=== PATIENT | female | born 1975 | race African-American/Black ===

== ENCOUNTER 2018-09-04 12:19 | Emergency (ER) | payer SELFPAY ==
[2018-09-04] MEDS ORDERED: Ondansetron ODT 4 MG TAB ONE (13:22)
[2018-09-04] MEDS ORDERED: Promethazine HCl 25 MG/ML VIAL ONE (14:36)
[2018-09-04 14:40] LABS: BHCG - Serum Negative (NEGATIVE); Eosinophils 2 % (0-10); Hemoglobin 14.4 g/dL (12.0-16.0); Lymphocytes 13 % (21-51); MDiff Complete? YES; Mean Corpuscular HGB CONC 33.8 g/dL (32.0-36.0); Mean Corpuscular Hemoglobin 28.3 pg (27.0-31.0); Mean Corpuscular Volume 83.9 fL (78.0-98.0); Mean Platelet Volume 7.5 fL (7.4-10.4); Monocytes 7 % (0-10); Neutrophil 74 % (42-75); Platelet Count 278 thou/uL (130-400); Platelet Morphology Comment Appears Adequate; Pregs Control Background? CLEAR/WHITE (CLR/WHITE); Pregs Control Bar Appear? YES (CONTROL BAR); RBC Distribution Width 11.9 % (11.5-14.5); Reactive Lymphocytes 3 % (0-10); White Blood Cell (WBC) Count 14.6 thou/uL (4.8-10.8)
[2018-09-04 14:50] LABS: ALT (SGPT) 14 U/L (8-55); AST (SGOT) 17 U/L (5-34); Albumin 4.7 g/dL (3.5-5.0); Alkaline Phosphatase 82 U/L (40-150); Anion Gap 18 mmol/L (10-20); BUN (Urea Nitrogen) 28 mg/dL (7.0-18.7); Bilirubin, Total 0.4 mg/dL (0.2-1.2); Calc. Creatinine Clearance 0 mL/min (70-130); Calcium 10.5 mg/dL (7.8-10.44); Carbon Dioxide 22 mmol/L (22-29); Chloride 102 mmol/L (98-107); Estimated GFR-MDRD 42; Globulin 3.5 g/dL (2.4-3.5); Glucose 99 mg/dL (70-105); Lipase 32 U/L (8-78); Potassium 3.1 mmol/L (3.5-5.1); Protein, Total 8.2 g/dL (6.0-8.3); Sodium 139 mmol/L (136-145)
[2018-09-04] MEDS ORDERED: Potassium Chloride 20 MEQ TAB ONE (15:10)
== END 2018-09-04 17:15 | disposition home or self-care (01) ==
LOC: SCSER 12:19
DX: K52.9 Noninfective gastroenteritis and colitis, unspecified (principal)
CPT/HCPCS: 80053; 83605; 83690; 84703; 85025; 96365; J2550; Q0162

== ENCOUNTER 2018-09-05 11:10 | Emergency (ER) | payer SELFPAY ==
[2018-09-05] MEDS ORDERED: Lidocaine Viscous Sol 2% 15 ml UD Cup ONE (11:32)
== END 2018-09-05 11:40 | disposition home or self-care (01) ==
LOC: SCSER 11:10
DX: K12.1 Other forms of stomatitis (principal)
CPT/HCPCS: 99283

== ENCOUNTER 2018-09-05 13:11 | Emergency (ER) | payer SELFPAY ==
[2018-09-05] MEDS ORDERED: Ibuprofen 800 MG TAB ONE (16:06)
[2018-09-05] MEDS ORDERED: Benzocaine (Dental) 20% 10 gm Tube TOP SCH (16:30)
== END 2018-09-05 17:05 | disposition home or self-care (01) ==
LOC: ERS 13:11
DX: K12.0 Recurrent oral aphthae (principal); F17.210 Nicotine dependence, cigarettes, uncomplicated; Z79.899 Other long term (current) drug therapy
CPT/HCPCS: 99282

== ENCOUNTER 2018-09-07 06:23 | Emergency (ER) | payer SELFPAY | END 2018-09-07 07:17 | disposition home or self-care (01) | LOC: ERS 06:23 | DX: K12.0 Recurrent oral aphthae (principal); F17.210 Nicotine dependence, cigarettes, uncomplicated | CPT/HCPCS: 99281 ==

== ENCOUNTER 2019-02-27 14:26 | Emergency (ER) | payer SELFPAY | END 2019-02-27 15:01 | disposition home or self-care (01) | LOC: ERS 14:26 | DX: F41.9 Anxiety disorder, unspecified (principal); R21 Rash and other nonspecific skin eruption; K08.89 Other specified disorders of teeth and supporting structures; F17.210 Nicotine dependence, cigarettes, uncomplicated | CPT/HCPCS: 99283 ==

== ENCOUNTER 2021-09-06 20:52 | Inpatient (IN) | payer SELFPAY ==
[2021-09-06 21:36] LABS: #Basophils 0.1 thou/uL (0.0-0.2); #Eosinphils 0.1 thou/uL (0.0-0.7); #Lymphocytes 3.1 thou/uL (1.20-3.40); #Monocytes 0.9 thou/uL (0.11-0.59); #Neutrophils 9.1 thou/uL (1.40-6.50); %Basophils 0.5 % (0.0-1.0); %Eosinophils 0.8 % (0.0-10.0); %Lymphocytes 23.4 % (21.0-51.0); %Neutrophils 68.3 % (42.0-75.0); Hemoglobin 13.1 g/dL (12.0-16.0); Mean Corpuscular HGB CONC 33.2 g/dL (32.0-36.0); Mean Corpuscular Hemoglobin 28.5 pg (27.0-31.0); Mean Corpuscular Volume 85.9 fL (78.0-98.0); Mean Platelet Volume 8.1 fL (7.4-10.4); Platelet Count 273 thou/uL (130-400); RBC Distribution Width 12.5 % (11.5-14.5); Red Blood Cell (RBC) Count 4.58 mill/uL (4.20-5.40); White Blood Cell (WBC) Count 13.3 thou/uL (4.8-10.8)
[2021-09-06 21:50] LABS: ALT (SGPT) 16 U/L (8-55); AST (SGOT) 29 U/L (5-34); Albumin 4.2 g/dL (3.5-5.0); Alkaline Phosphatase 76 U/L (40-110); Anion Gap 24 mmol/L (10-20); BUN (Urea Nitrogen) 23 mg/dL (7.0-18.7); Bilirubin, Total 0.5 mg/dL (0.2-1.2); Calc. Creatinine Clearance 0 mL/min (70-130); Calcium 9.4 mg/dL (7.8-10.44); Carbon Dioxide 27 mmol/L (22-29); Chloride 91 mmol/L (98-107); Estimated GFR 20; Globulin 3.9 g/dL (2.4-3.5); Glucose 148 mg/dL (70-105); Lipase 35 U/L (8-78); Potassium 3.5 mmol/L (3.5-5.1); Protein, Total 8.1 g/dL (6.0-8.3); Sodium 138 mmol/L (136-145)
[2021-09-06 22:18] LABS: INR-International Normal Ratio 1.1; PTT 28.3 sec (22.9-36.1); Prothrombin Time 14.1 sec (12.0-14.7)
[2021-09-06 22:25] LABS: Acetaminophen Less than 10.0 mcg/mL (10.0-30.0); Alcohol Less than 10 mg/dL (Less than 10); CK (CPK) 421 U/L (29-168); Salicylate Less than 8.0 mg/dL (15.0-30.0)
[2021-09-06 22:39] LABS: BHCG - Serum Negative (NEGATIVE); Pregs Control Background? CLEAR/WHITE (CLR/WHITE); Pregs Control Bar Appear? YES (CONTROL BAR)
[2021-09-06] MEDS ORDERED: Sodium Chloride 0.9% 100 ML ONE (22:49)
[2021-09-06] MEDS ORDERED: Cefepime 2 GM VIAL ONE (22:49)
[2021-09-06] MEDS ORDERED: VANCOMYCIN 2 GRAM/500 ML BAG 2 GM in Premix Bag 1 BAG IVPB SCH (23:00)
[2021-09-06 23:08] LABS: Amphetamine Detected (NotDetected); Barbiturates Screen Not Detected (NotDetected); Benzodiazepine Screen Not Detected (NotDetected); Cocaine Metabolite Screen Not Detected (NotDetected); Methadone Not Detected (NotDetected); Methamphetamine Detected (NotDetected); Opiate Screen Not Detected (NotDetected); Oxycodone Screen Not Detected (NotDetected); Phencyclidine (PCP) Not Detected (NotDetected); THC/Cannabinoid Screen Not Detected (NotDetected); Tricyclic Screen Detected (NotDetected)
[2021-09-06 23:41] LABS: SARS-CoV-2 NAA Rapid Test Not Detected (NotDetected)
[2021-09-07] MEDS ORDERED: Ketamine 50 MG/ML (10ML VIAL) ONE (01:01)
[2021-09-07] MEDS ORDERED: Norepinephrine 8 MG/0.9% NS 250 ML ONE (01:02)
[2021-09-07 03:30] VITALS: BMI 38.4
[2021-09-07] MEDS: Sodium Chloride 0.9% 1,000 ML IV SCH ×4 (03:30→20:51)
[2021-09-07] MEDS ORDERED: Ondansetron PF 4 MG/2 ML Vial IVP PRN (04:39)
[2021-09-07] MEDS ORDERED: Norepinephrine 8 MG/0.9% NS 250 ML IVPB SCH (04:45)
[2021-09-07] MEDS ORDERED: Acetaminophen 325 MG TAB ONE (06:08)
[2021-09-07] MEDS: Acetaminophen 325 MG TAB PO PRN ×2 (06:09→11:20)
[2021-09-07 06:49] LABS: #Eosinphils 0.2 thou/uL (0.0-0.7); #Lymphocytes 3.3 thou/uL (1.20-3.40); #Monocytes 0.9 thou/uL (0.11-0.59); %Basophils 0.3 % (0.0-1.0); %Eosinophils 1.3 % (0.0-10.0); %Lymphocytes 24.6 % (21.0-51.0); Hemoglobin 11.2 g/dL (12.0-16.0); Mean Corpuscular HGB CONC 32.9 g/dL (32.0-36.0); Mean Corpuscular Hemoglobin 28.7 pg (27.0-31.0); Mean Corpuscular Volume 87.1 fL (78.0-98.0); Mean Platelet Volume 7.9 fL (7.4-10.4); Platelet Count 269 thou/uL (130-400); RBC Distribution Width 12.4 % (11.5-14.5); White Blood Cell (WBC) Count 13.5 thou/uL (4.8-10.8)
[2021-09-07 07:05] LABS: Anion Gap 15 mmol/L (10-20); BUN (Urea Nitrogen) 20 mg/dL (7.0-18.7); Calc. Creatinine Clearance 72 mL/min (70-130); Calcium 8.3 mg/dL (7.8-10.44); Carbon Dioxide 27 mmol/L (22-29); Chloride 102 mmol/L (98-107); Estimated GFR 42; Glucose 124 mg/dL (70-105); Sodium 141 mmol/L (136-145)
[2021-09-07 07:13] LABS: Potassium 2.8 mmol/L (3.5-5.1)
[2021-09-07 07:20] LABS: Lymphocytes 24 % (21-51); MDiff Complete? YES; Monocytes 3 % (0-10); Neutrophil 70 % (42-75); Platelet Morphology Comment Appears Adequate; Reactive Lymphocytes 2 % (0-10)
[2021-09-07] MEDS ORDERED: Potassium Chloride 20 MEQ TAB PO SCH ×2 (08:15→15:45)
[2021-09-07] MEDS: Famotidine 20 MG TAB PO SCH (08:54)
[2021-09-07] MEDS: Heparin 5,000 UNITS/ML VIAL SC SCH ×2 (08:55→20:48)
[2021-09-07] MEDS ORDERED: Enoxaparin Sodium 30 MG/0.3 ML SYRINGE SC SCH (09:00)
[2021-09-07] MEDS ORDERED: Lorazepam 2 MG/ML VIAL SLOW IVP PRN (10:52)
[2021-09-07] MEDS ORDERED: Cefepime 1 GM in Sodium Chloride 0.9% 100 ML IVPB SCH (11:00)
[2021-09-07 12:06] LABS: Bilirubin Negative (Negative); Blood, Urine Negative (Negative); Clarity Clear (Clear); Glucose, Urine (Dipstick) Normal (Negative); Ketone, Urine Negative (Negative); Leukocyte Negative Leu/uL (Negative); Nitrite Negative (Negative); Protein, Urine (Dipstick) 10 mg/dL (Neg-Trace); Specific Gravity, Urine 1.018 (1.002-1.036); Urobilinogen Normal mg/dL (Less than 2)
[2021-09-07] MEDS ORDERED: Electrolyte Replacement Protocol FS PRN (15:45)
[2021-09-07] MEDS ORDERED: Electrolyte Replacement Protocol 1 EACH FS SCH (15:45)
[2021-09-07 16:18] LABS: Anion Gap 15 mmol/L (10-20); BUN (Urea Nitrogen) 14 mg/dL (7.0-18.7); CK (CPK) 480 U/L (29-168); Calc. Creatinine Clearance 95 mL/min (70-130); Calcium 8.1 mg/dL (7.8-10.44); Carbon Dioxide 28 mmol/L (22-29); Chloride 103 mmol/L (98-107); Estimated GFR 59; Glucose 116 mg/dL (70-105); Magnesium 1.7 mg/dL (1.6-2.6); Sodium 143 mmol/L (136-145)
[2021-09-07 16:31] LABS: Potassium 2.8 mmol/L (3.5-5.1)
[2021-09-07] MEDS: Magnesium 2 GM/50 ML(in water) 2 GM in Premix Bag 1 BAG IVPB SCH (17:39)
[2021-09-07] MEDS: Potassium Chloride 20 MEQ TAB PO SCH (20:43)
[2021-09-07] MEDS ORDERED: traMADol HCl 50 MG TAB PO SCH (21:04)
[2021-09-07] MEDS ORDERED: Vancomycin HCl 1 GM in Sodium Chloride 0.9% 250 ML 0 ML IVPB SCH (23:00)
[2021-09-08 01:43] LABS: Potassium 3.2 mmol/L (3.5-5.1)
[2021-09-08] MEDS: Sodium Chloride 0.9% 1,000 ML IV SCH ×5 (01:49→22:41)
[2021-09-08 04:32] LABS: #Basophils 0.1 thou/uL (0.0-0.2); #Eosinphils 0.3 thou/uL (0.0-0.7); #Lymphocytes 3.5 thou/uL (1.20-3.40); #Monocytes 0.7 thou/uL (0.11-0.59); #Neutrophils 5.6 thou/uL (1.40-6.50); %Basophils 0.5 % (0.0-1.0); %Eosinophils 2.8 % (0.0-10.0); %Lymphocytes 34.7 % (21.0-51.0); %Monocytes 6.7 % (0.0-10.0); %Neutrophils 55.2 % (42.0-75.0); Hemoglobin 10.7 g/dL (12.0-16.0); Mean Corpuscular HGB CONC 33.1 g/dL (32.0-36.0); Mean Corpuscular Hemoglobin 28.8 pg (27.0-31.0); Mean Corpuscular Volume 86.9 fL (78.0-98.0); Mean Platelet Volume 7.8 fL (7.4-10.4); Platelet Count 260 thou/uL (130-400); RBC Distribution Width 12.4 % (11.5-14.5); White Blood Cell (WBC) Count 10.1 thou/uL (4.8-10.8)
[2021-09-08 04:52] LABS: Anion Gap 13 mmol/L (10-20); BUN (Urea Nitrogen) 10 mg/dL (7.0-18.7); CK (CPK) 495 U/L (29-168); Calc. Creatinine Clearance 138 mL/min (70-130); Calcium 8.4 mg/dL (7.8-10.44); Carbon Dioxide 29 mmol/L (22-29); Chloride 104 mmol/L (98-107); Estimated GFR 92; Glucose 95 mg/dL (70-105); Potassium 3.3 mmol/L (3.5-5.1); Sodium 143 mmol/L (136-145)
[2021-09-08] MEDS: Acetaminophen 325 MG TAB PO PRN (05:16)
[2021-09-08] MEDS ORDERED: Potassium Chloride 20 MEQ TAB PO SCH ×2 (07:30→08:00)
[2021-09-08] MEDS: Heparin 5,000 UNITS/ML VIAL SC SCH ×2 (09:47→20:05)
[2021-09-08] MEDS: Famotidine 20 MG TAB PO SCH (09:47)
[2021-09-08 14:23] LABS: Bacteria/HPF None Seen HPF (None Seen); Bilirubin Negative (Negative); Blood, Urine 1+ (Negative); Clarity Clear (Clear); Glucose, Urine (Dipstick) Normal (Negative); Ketone, Urine Negative (Negative); Leukocyte Negative Leu/uL (Negative); Nitrite Negative (Negative); Protein, Urine (Dipstick) Negative (Neg-Trace); Specific Gravity, Urine 1.008 (1.002-1.036); Squamous Epithelial None Seen HPF (0-3); Urine Culture Reflex No No; Urobilinogen Normal mg/dL (Less than 2); WBC/HPF 0-3 HPF (0-3)
[2021-09-08] MEDS: Magnesium 2 GM/50 ML(in water) 2 GM in Premix Bag 1 BAG IVPB SCH (16:48)
[2021-09-08] MEDS: Lorazepam (BATCHED) 2 MG/ML SYR SLOW IVP PRN ×2 (16:49→23:06)
[2021-09-08] MEDS: Potassium Chloride 20 MEQ TAB PO SCH (20:05)
[2021-09-09] MEDS: Sodium Chloride 0.9% 1,000 ML IV SCH ×3 (03:43→14:42)
[2021-09-09 04:37] LABS: #Basophils 0.1 thou/uL (0.0-0.2); #Eosinphils 0.3 thou/uL (0.0-0.7); #Lymphocytes 3.5 thou/uL (1.20-3.40); #Monocytes 0.6 thou/uL (0.11-0.59); #Neutrophils 4.4 thou/uL (1.40-6.50); %Basophils 0.7 % (0.0-1.0); %Eosinophils 3.3 % (0.0-10.0); %Lymphocytes 39.4 % (21.0-51.0); %Monocytes 7.1 % (0.0-10.0); %Neutrophils 49.5 % (42.0-75.0); Hemoglobin 10.9 g/dL (12.0-16.0); Mean Corpuscular HGB CONC 32.1 g/dL (32.0-36.0); Mean Corpuscular Hemoglobin 28.5 pg (27.0-31.0); Mean Corpuscular Volume 88.7 fL (78.0-98.0); Platelet Count 260 thou/uL (130-400); RBC Distribution Width 12.2 % (11.5-14.5); Red Blood Cell (RBC) Count 3.81 mill/uL (4.20-5.40); White Blood Cell (WBC) Count 8.9 thou/uL (4.8-10.8)
[2021-09-09 05:31] LABS: Anion Gap 16 mmol/L (10-20); BUN (Urea Nitrogen) 7 mg/dL (7.0-18.7); CK (CPK) 363 U/L (29-168); Calc. Creatinine Clearance 162 mL/min (70-130); Calcium 8.2 mg/dL (7.8-10.44); Carbon Dioxide 22 mmol/L (22-29); Chloride 106 mmol/L (98-107); Estimated GFR 110; Glucose 98 mg/dL (70-105); Potassium 3.4 mmol/L (3.5-5.1); Sodium 141 mmol/L (136-145)
[2021-09-09] MEDS ORDERED: Potassium Chloride 20 MEQ TAB PO SCH (08:00)
[2021-09-09] MEDS: Famotidine 20 MG TAB PO SCH (09:51)
[2021-09-09] MEDS: Heparin 5,000 UNITS/ML VIAL SC SCH (09:54)
[2021-09-09] MEDS ORDERED: Lorazepam 0.5 MG TAB PO SCH (14:45)
[2021-09-09 16:42] VITALS: BP 141/80; TEMP 98
== END 2021-09-09 16:20 | disposition home or self-care (01) | DRG 557 ==
LOC: ERS 20:52 → ERHOLD 09-07 00:51 → EEVIPCON 09-07 00:51 → CCU 09-07 08:27 → 2NO 09-07 19:48
PROVIDERS: ADMIT Internal Medicine; ATTEND Hospitalist
PROC: 02HV33Z Insertion of Infusion Device into Superior Vena Cava, Percutaneous Approach (ICD-10-PCS; principal; 2021-09-07)
PROC: 00JU3ZZ Inspection of Spinal Canal, Percutaneous Approach (ICD-10-PCS; 2021-09-07)
PROC: 3E033XZ Introduction of Vasopressor into Peripheral Vein, Percutaneous Approach (ICD-10-PCS; 2021-09-07)
DX: M62.82 Rhabdomyolysis (principal); G93.41 Metabolic encephalopathy; R57.1 Hypovolemic shock; N17.9 Acute kidney failure, unspecified; I10 Essential (primary) hypertension; Z20.822 Contact with and (suspected) exposure to COVID-19; F17.210 Nicotine dependence, cigarettes, uncomplicated; F15.10 Other stimulant abuse, uncomplicated; I95.2 Hypotension due to drugs; E87.6 Hypokalemia; T43.625A Adverse effect of amphetamines, initial encounter; Z79.899 Other long term (current) drug therapy
CPT/HCPCS: 36415; 36416; 36556; 51702; 70450; 71045; 80048; 80053; 80306; 80307; 81001; 81003; 82550; 83605; 83690; 83735; 84443; 84484; 84703; 85025; 85610; 85730; 87040; 87086; 87149; 93005; 93010; 94760; 96361; 96365; 96366; 96375; 99292; J0692; J1644; J2060; J2405; J3370; J3475; J3490; J7050

== ENCOUNTER 2022-10-18 11:23 | Outpatient (CLI) | payer BC | END 2022-10-18 11:24 | disposition home or self-care (01) | LOC: BICMAMMO 11:23 | PROVIDERS: ATTEND Internal Medicine | DX: Z12.31 Encounter for screening mammogram for malignant neoplasm of breast (principal) | CPT/HCPCS: 77063; 77067 ==

== ENCOUNTER 2022-10-27 14:22 | Emergency (ER) | payer BC ==
[2022-10-27 15:07] LABS: #Eosinphils 0.2 thou/uL (0.0-0.7); #Monocytes 0.5 thou/uL (0.11-0.59); #Neutrophils 3.4 thou/uL (1.40-6.50); %Basophils 0.5 % (0.0-1.0); %Eosinophils 2.5 % (0.0-10.0); %Lymphocytes 49.2 % (21.0-51.0); %Monocytes 6.2 % (0.0-10.0); %Neutrophils 41.4 % (42.0-75.0); Hematocrit 41.9 % (36.0-47.0); Mean Corpuscular HGB CONC 33.4 g/dL (32.0-36.0); Mean Corpuscular Hemoglobin 28.5 pg (27.0-31.0); Mean Corpuscular Volume 85.3 fl (78.0-98.0); Mean Platelet Volume 10.3 fL (7.4-10.4); Platelet Count 305 10x3/uL (130-400); RBC Distribution Width 13.2 % (11.5-14.5); Red Blood Cell (RBC) Count 4.91 mill/uL (4.20-5.40); White Blood Cell (WBC) Count 8.3 10x3/uL (4.8-10.8)
[2022-10-27 15:16] LABS: BHCG - Serum Negative (NEGATIVE); Pregs Control Background? CLEAR/WHITE (CLR/WHITE); Pregs Control Bar Appear? YES (CONTROL BAR)
[2022-10-27 15:33] LABS: ALT (SGPT) 28 U/L (8-55); AST (SGOT) 22 U/L (5-34); Albumin 4.6 g/dL (3.5-5.0); Alkaline Phosphatase 78 U/L (40-110); Anion Gap 15 mmol/L (10-20); BUN (Urea Nitrogen) 8 mg/dL (7.0-18.7); Bilirubin, Total 0.3 mg/dL (0.2-1.2); Calc. Creatinine Clearance 0 mL/min (70-130); Calcium 10.4 mg/dL (7.8-10.44); Carbon Dioxide 30 mmol/L (22-29); Chloride 96 mmol/L (98-107); Estimated GFR 90; Globulin 3.3 g/dL (2.4-3.5); Glucose 110 mg/dL (70-105); Magnesium 1.6 mg/dL (1.6-2.6); Potassium 2.9 mmol/L (3.5-5.1); Protein, Total 7.9 g/dL (6.0-8.3); Sodium 138 mmol/L (136-145)
[2022-10-27 15:37] LABS: Troponin I Less than 0.010 ng/mL (< 0.028)
[2022-10-27] MEDS ORDERED: Potassium Chloride 20 MEQ TAB ONE (15:44)
[2022-10-27] MEDS ORDERED: Magnesium 2 GM/50 ML BAG (IN WATER) ONE (15:48)
== END 2022-10-27 17:00 | disposition home or self-care (01) ==
LOC: ERS 14:22
DX: E87.6 Hypokalemia (principal); I10 Essential (primary) hypertension; F17.210 Nicotine dependence, cigarettes, uncomplicated
CPT/HCPCS: 80053; 83735; 84484; 84703; 85025; 93005; 96361; 96365; J3475

== ENCOUNTER 2023-11-18 20:00 | Inpatient (IN) | payer BC ==
[2023-11-18] MEDS ORDERED: Acetaminophen 650 MG Suppository PR PRN (22:56)
[2023-11-18 23:33] VITALS: BMI 33.1
[2023-11-18] MEDS: Lactated Ringer's 1,000 ML IV SCH (23:51)
[2023-11-18] MEDS: Acetaminophen 325 MG TAB PO SCH (23:53)
[2023-11-18] MEDS: Ondansetron PF 4 MG/2 ML Vial IVP PRN (23:53)
[2023-11-18] MEDS: Nicotine 14 MG PATCH TD PRN (23:53)
[2023-11-18] MEDS: Lactated Ringer's 500 ML IV SCH (23:55)
[2023-11-19 01:29] LABS: #Basophils 0.03 10x3/uL (0.0-0.2); %Basophils 0.4 % (0.0-1.0); %Eosinophils 3.3 % (0.0-10.0); %Lymphocytes 33.6 % (21.0-51.0); %Monocytes 11.8 % (0.0-10.0); %Neutrophils 50.6 % (42.0-75.0); Hemoglobin 11.6 g/dL (12.0-16.0); Mean Corpuscular HGB CONC 34.1 g/dL (32.0-36.0); Mean Corpuscular Hemoglobin 29.2 pg (27.0-31.0); Mean Corpuscular Volume 85.6 fL (78.0-98.0); Platelet Count 280 10x3/uL (130-400); RBC Distribution Width 12.9 % (11.5-14.5); Red Blood Cell (RBC) Count 3.97 mill/uL (4.20-5.40)
[2023-11-19 01:43] LABS: Lactic Acid 1.36 mmol/L (0.5-2.2)
[2023-11-19 01:53] LABS: Anion Gap 12 mmol/L (10-20); BUN (Urea Nitrogen) 13 mg/dL (7.0-18.7); Calc. Creatinine Clearance 52 mL/min (70-130); Calcium 8.2 mg/dL (7.8-10.44); Carbon Dioxide 29 mmol/L (22-29); Chloride 101 mmol/L (98-107); Estimated GFR 35; Glucose 98 mg/dL (70-105); Potassium 2.3 mmol/L (3.5-5.1); Sodium 140 mmol/L (136-145)
[2023-11-19] MEDS: Potassium Chloride 20 MEQ in Premix 1 BAG IVPB SCH ×2 (02:30→14:06)
[2023-11-19 04:56] LABS: Anion Gap 15 mmol/L (10-20); BUN (Urea Nitrogen) 12 mg/dL (7.0-18.7); Calc. Creatinine Clearance 58 mL/min (70-130); Calcium 8.5 mg/dL (7.8-10.44); Carbon Dioxide 26 mmol/L (22-29); Chloride 102 mmol/L (98-107); Estimated GFR 39; Glucose 85 mg/dL (70-105); Potassium 2.7 mmol/L (3.5-5.1); Sodium 140 mmol/L (136-145)
[2023-11-19] MEDS: Potassium Chloride 20 MEQ TAB PO SCH ×2 (06:07→14:05)
[2023-11-19] MEDS: Famotidine 20 MG TAB PO SCH (08:20)
[2023-11-19] MEDS ORDERED: Famotidine/PF 20 mg/2ml Vial SLOW IVP SCH (09:00)
[2023-11-19 12:09] LABS: Potassium 2.7 mmol/L (3.5-5.1)
[2023-11-19] MEDS ORDERED: Potassium Chloride 40 MEQ in Premix 1 BAG IVPB SCH (13:30)
[2023-11-19] MEDS: Lactated Ringer's 1,000 ML IV SCH (22:34)
[2023-11-20 05:43] LABS: Anion Gap 10 mmol/L (10-20); BUN (Urea Nitrogen) 6 mg/dL (7.0-18.7); Calc. Creatinine Clearance 114 mL/min (70-130); Calcium 8.5 mg/dL (7.8-10.44); Carbon Dioxide 30 mmol/L (22-29); Chloride 102 mmol/L (98-107); Estimated GFR 86; Glucose 87 mg/dL (70-105); Magnesium 1.6 mg/dL (1.6-2.6); Potassium 2.7 mmol/L (3.5-5.1); Sodium 139 mmol/L (136-145)
[2023-11-20] MEDS ORDERED: Potassium Chloride 40 MEQ in Premix 1 BAG IVPB SCH (08:00)
[2023-11-20] MEDS ORDERED: Famotidine 20 MG TAB PO SCH (10:00)
[2023-11-20] MEDS: Magnesium Oxide 400 MG TAB PO SCH (10:54)
[2023-11-20] MEDS: Potassium Chloride 20 MEQ TAB PO SCH (10:54)
[2023-11-20] MEDS: Famotidine 20 MG TAB PO SCH (10:55)
[2023-11-20] MEDS: Magnesium 2 GM/50 ML(in water) 2 GM in Premix 1 BAG IVPB SCH (11:07)
[2023-11-20] MEDS: Potassium Bicarbonate/Cit Ac 20 MEQ TAB PO SCH (12:49)
[2023-11-20] MEDS: PHOS-NAK 1 PKT PACK PO SCH (12:49)
[2023-11-20] MEDS: Potassium Chloride 20 MEQ in Premix 1 BAG IVPB SCH (12:52)
[2023-11-20] MEDS: Lactated Ringer's 1,000 ML IV SCH (17:27)
[2023-11-21] MEDS: Acetaminophen 325 MG TAB PO PRN (02:15)
[2023-11-21 07:09] LABS: Anion Gap 11 mmol/L (10-20); BUN (Urea Nitrogen) 6 mg/dL (7.0-18.7); Calc. Creatinine Clearance 124 mL/min (70-130); Calcium 9.3 mg/dL (7.8-10.44); Carbon Dioxide 28 mmol/L (22-29); Chloride 103 mmol/L (98-107); Estimated GFR 91; Glucose 104 mg/dL (70-105); Magnesium 1.5 mg/dL (1.6-2.6); Potassium 3.3 mmol/L (3.5-5.1); Sodium 139 mmol/L (136-145)
[2023-11-21] MEDS: Magnesium 2 GM/50 ML(in water) 2 GM in Premix 1 BAG IVPB SCH (08:42)
[2023-11-21] MEDS: Potassium Chloride 20 MEQ in Premix 1 BAG IVPB SCH (08:42)
[2023-11-21] MEDS: Potassium Chloride 20 MEQ TAB PO SCH (08:43)
[2023-11-21] MEDS: Potassium Bicarbonate/Cit Ac 20 MEQ TAB PO SCH (11:47)
[2023-11-21 12:14] VITALS: BP 136/94; TEMP 98.6
[2023-11-21] MEDS: Ondansetron ODT 4 MG TAB PO PRN (15:36)
== END 2023-11-21 17:06 | disposition home or self-care (01) | DRG 641 ==
LOC: 2SW 22:37
PROVIDERS: ADMIT Student in an Organized Health Care Education/Training Program; ATTEND Internal Medicine
DX: E87.6 Hypokalemia (principal); N17.9 Acute kidney failure, unspecified; E86.0 Dehydration; T38.3X5A Adverse effect of insulin and oral hypoglycemic [antidiabetic] drugs, initial encounter; D64.9 Anemia, unspecified; F15.10 Other stimulant abuse, uncomplicated; Z71.6 Tobacco abuse counseling; Z79.899 Other long term (current) drug therapy; E83.42 Hypomagnesemia; E83.39 Other disorders of phosphorus metabolism
CPT/HCPCS: 36415; 80048; 83605; 83735; 84100; 84133; 93005; 93010; J2405; J3475; J3480; J7120; Q0162

== ENCOUNTER 2023-12-08 16:58 | Inpatient (IN) | payer BC ==
[2023-12-08 18:11] LABS: #Basophils 0.05 10x3/uL (0.0-0.2); %Basophils 0.5 % (0.0-1.0); %Eosinophils 3.4 % (0.0-10.0); %Lymphocytes 39.4 % (21.0-51.0); %Monocytes 7.7 % (0.0-10.0); %Neutrophils 48.7 % (42.0-75.0); Hematocrit 39.7 % (36.0-47.0); Hemoglobin 13.5 g/dL (12.0-16.0); Mean Corpuscular Hemoglobin 28.6 pg (27.0-31.0); Mean Corpuscular Volume 84.1 fL (78.0-98.0); Mean Platelet Volume 9.9 fL (7.4-10.4); Platelet Count 310 10x3/uL (130-400); RBC Distribution Width 12.9 % (11.5-14.5); Red Blood Cell (RBC) Count 4.72 mill/uL (4.20-5.40)
[2023-12-08 18:20] LABS: BHCG - Serum Negative (NEGATIVE); Pregs Control Background? CLEAR/WHITE (CLR/WHITE); Pregs Control Bar Appear? YES (CONTROL BAR)
[2023-12-08 18:26] LABS: ALT (SGPT) 32 U/L (8-55); AST (SGOT) 38 U/L (5-34); Albumin 4.3 g/dL (3.5-5.0); Alkaline Phosphatase 76 U/L (40-110); Anion Gap 20 mmol/L (10-20); BUN (Urea Nitrogen) 24 mg/dL (7.0-18.7); Bilirubin, Total 0.3 mg/dL (0.2-1.2); CK (CPK) 941 U/L (29-168); Calc. Creatinine Clearance 0 mL/min (70-130); Carbon Dioxide 20 mmol/L (22-29); Chloride 100 mmol/L (98-107); Estimated GFR 11; Globulin 3.3 g/dL (2.4-3.5); Glucose 87 mg/dL (70-105); Potassium 3.3 mmol/L (3.5-5.1); Protein, Total 7.6 g/dL (6.0-8.3); Sodium 137 mmol/L (136-145)
[2023-12-08 18:27] LABS: Lipase 41 U/L (8-78)
[2023-12-08 18:28] LABS: Acetaminophen Less than 10 mcg/mL (Less than 10); Alcohol Less than 10.0 mg/dL (Less than 10); Salicylate Less than 8.0 mg/dL (Less than 8.0)
[2023-12-08 18:32] LABS: Troponin I Less than 0.010 ng/mL (< 0.028)
[2023-12-08] MEDS ORDERED: Dexamethasone 10 MG/ML VIAL ONE (18:57)
[2023-12-08 19:01] LABS: Amphetamine Detected (NotDetected); Barbiturates Screen Not Detected (NotDetected); Benzodiazepine Screen Detected (NotDetected); Cocaine Metabolite Screen Not Detected (NotDetected); Methadone Not Detected (NotDetected); Methamphetamine Detected (NotDetected); Opiate Screen Not Detected (NotDetected); Oxycodone Screen Not Detected (NotDetected); Phencyclidine (PCP) Not Detected (NotDetected); THC/Cannabinoid Screen Not Detected (NotDetected); Tricyclic Screen Not Detected (NotDetected)
[2023-12-08 19:07] LABS: Bilirubin Negative (Negative); Blood, Urine Negative (Negative); CAUTI Indications for Culture Alt mental st,lethar; Clarity Turbid (Clear); Glucose, Urine (Dipstick) Normal (Negative); Ketone, Urine Negative (Negative); Leukocyte 500 Leu/uL (Negative); Nitrite Negative (Negative); Protein, Urine (Dipstick) 30 mg/dL (Neg-Trace); RBC/HPF 0-3 HPF (0-3); Specific Gravity, Urine 1.021 (1.002-1.036); Squamous Epithelial 21-50 HPF (0-3); Urobilinogen Normal mg/dL (Less than 2)
[2023-12-08 19:20] LABS: Bacteria/HPF 1+ HPF (None Seen)
[2023-12-08 19:23] LABS: Urine Culture Reflex No No
[2023-12-08] MEDS ORDERED: NOREPINEPHRINE 8 MG/250 ML-D5W 250 ML ONE (19:26)
[2023-12-08] MEDS ORDERED: Cefepime 2 GM VIAL ONE (19:50)
[2023-12-08] MEDS ORDERED: Sodium Chloride 0.9% 100 ML ONE (19:51)
[2023-12-08] MEDS ORDERED: NOREPINEPHRINE 8 MG/250 ML-D5W 250 ML IVPB PRN (21:08)
[2023-12-08 21:24] LABS: Bilirubin Negative (Negative); Blood, Urine 1+ (Negative); CAUTI Indications for Culture Alt mental st,lethar; Clarity Clear (Clear); Glucose, Urine (Dipstick) Normal (Negative); Ketone, Urine Negative (Negative); Leukocyte Negative Leu/uL (Negative); Nitrite Negative (Negative); Protein, Urine (Dipstick) Negative (Neg-Trace); Urobilinogen Normal mg/dL (Less than 2)
[2023-12-08 21:38] LABS: Squamous Epithelial 0-3 HPF (0-3); Transitional Epithelial 0-3 HPF (None Seen)
[2023-12-08 21:39] LABS: RBC/HPF 0-3 HPF (0-3); WBC/HPF 0-3 HPF (0-3)
[2023-12-08 21:40] LABS: Bacteria/HPF Rare-Few HPF (None Seen)
[2023-12-08 21:45] LABS: Urine Culture Reflex No No
[2023-12-08] MEDS: Vancomycin (BATCH) 1.5 GM in Premix 1 BAG IVPB SCH (22:38)
[2023-12-08] MEDS: Potassium Chloride 20 MEQ in Premix 1 BAG IVPB SCH (22:38)
[2023-12-08] MEDS: Lactated Ringer's 1,000 ML IV SCH (22:38)
[2023-12-08 22:53] VITALS: BMI 30.4
[2023-12-08] MEDS ORDERED: Dextrose 50% Abboject 50 ML SYRINGE SLOW IVP PRN (23:23)
[2023-12-08] MEDS ORDERED: Dextrose 5% in Water 1,000 ML IV PRN (23:23)
[2023-12-08] MEDS ORDERED: Insulin Lispro 100 UNIT/ML 10 ML VIAL SC PRN ×2 (23:23)
[2023-12-08] MEDS ORDERED: Glucagon 1 MG/ML KIT IM PRN (23:23)
[2023-12-09 00:53] LABS: Phosphorus 2.3 mg/dL (2.3-4.7)
[2023-12-09 05:58] LABS: #Basophils Less than 0.03 10x3/uL (0.0-0.2); #Eosinophils Less than 0.03 10x3/uL (0.0-0.7); %Basophils 0.1 % (0.0-1.0); %Lymphocytes 12.6 % (21.0-51.0); %Monocytes 0.8 % (0.0-10.0); %Neutrophils 86.2 % (42.0-75.0); Hematocrit 36.8 % (36.0-47.0); Hemoglobin 12.2 g/dL (12.0-16.0); Mean Corpuscular HGB CONC 33.2 g/dL (32.0-36.0); Mean Corpuscular Hemoglobin 28.3 pg (27.0-31.0); Mean Corpuscular Volume 85.4 fL (78.0-98.0); Mean Platelet Volume 10.6 fL (7.4-10.4); Platelet Count 326 10x3/uL (130-400); RBC Distribution Width 13.1 % (11.5-14.5); Red Blood Cell (RBC) Count 4.31 mill/uL (4.20-5.40)
[2023-12-09 06:16] LABS: ALT (SGPT) 34 U/L (8-55); AST (SGOT) 33 U/L (5-34); Albumin 3.8 g/dL (3.5-5.0); Alkaline Phosphatase 73 U/L (40-110); Anion Gap 13 mmol/L (10-20); BUN (Urea Nitrogen) 16 mg/dL (7.0-18.7); Bilirubin, Total 0.4 mg/dL (0.2-1.2); Calc. Creatinine Clearance 43 mL/min (70-130); Calcium 9.8 mg/dL (7.8-10.44); Carbon Dioxide 23 mmol/L (22-29); Chloride 105 mmol/L (98-107); Estimated GFR 30; Globulin 3.4 g/dL (2.4-3.5); Glucose 193 mg/dL (70-105); Potassium 3.7 mmol/L (3.5-5.1); Protein, Total 7.2 g/dL (6.0-8.3); Sodium 137 mmol/L (136-145)
[2023-12-09] MEDS: Pantoprazole 40 MG VIAL IVP SCH (08:27)
[2023-12-09] MEDS: Heparin 5,000 UNITS/ML VIAL SC SCH (08:27)
[2023-12-09] MEDS: BuPROPion XL 150 MG ER.TAB PO SCH (08:27)
[2023-12-09] MEDS: Lactated Ringer's 500 ML IV SCH (08:40)
[2023-12-09] MEDS ORDERED: Cefepime 1 GM in Sodium Chloride 0.9% 100 ML IVPB SCH (09:00)
[2023-12-09] MEDS: Ondansetron PF 4 MG/2 ML Vial IVP PRN (13:38)
[2023-12-09] MEDS: Acetaminophen 325 MG TAB PO PRN (20:52)
[2023-12-10 04:01] LABS: #Basophils 0.04 10x3/uL (0.0-0.2); %Basophils 0.3 % (0.0-1.0); %Eosinophils 0.5 % (0.0-10.0); %Lymphocytes 23.3 % (21.0-51.0); %Monocytes 5.2 % (0.0-10.0); %Neutrophils 70.4 % (42.0-75.0); Hematocrit 31.6 % (36.0-47.0); Hemoglobin 10.6 g/dL (12.0-16.0); Mean Corpuscular HGB CONC 33.5 g/dL (32.0-36.0); Mean Corpuscular Hemoglobin 28.3 pg (27.0-31.0); Mean Corpuscular Volume 84.5 fL (78.0-98.0); Mean Platelet Volume 10.3 fL (7.4-10.4); Platelet Count 264 10x3/uL (130-400); RBC Distribution Width 13.5 % (11.5-14.5); Red Blood Cell (RBC) Count 3.74 mill/uL (4.20-5.40)
[2023-12-10 04:24] LABS: ALT (SGPT) 24 U/L (8-55); AST (SGOT) 18 U/L (5-34); Albumin 3.2 g/dL (3.5-5.0); Anion Gap 12 mmol/L (10-20); BUN (Urea Nitrogen) 8 mg/dL (7.0-18.7); Bilirubin, Total 0.2 mg/dL (0.2-1.2); Calc. Creatinine Clearance 90 mL/min (70-130); Calcium 9.2 mg/dL (7.8-10.44); Carbon Dioxide 28 mmol/L (22-29); Chloride 105 mmol/L (98-107); Estimated GFR 74; Globulin 2.7 g/dL (2.4-3.5); Glucose 140 mg/dL (70-105); Potassium 3.2 mmol/L (3.5-5.1); Protein, Total 5.9 g/dL (6.0-8.3); Sodium 142 mmol/L (136-145)
[2023-12-10 05:02] LABS: Alkaline Phosphatase 78 U/L (40-110)
[2023-12-10] MEDS: Potassium Chloride 20 MEQ TAB PO SCH (10:17)
[2023-12-10] MEDS: Pantoprazole DR 40 MG TAB PO SCH (10:17)
[2023-12-10 17:15] VITALS: BP 108/73; TEMP 97.6
== END 2023-12-10 18:22 | disposition home or self-care (01) | DRG 871 ==
LOC: ERS 16:58 → CCU 20:39 → MSONC 12-10 13:29
PROVIDERS: ADMIT Family Medicine; ATTEND Family Medicine
DX: R57.1 Hypovolemic shock (principal); G93.41 Metabolic encephalopathy; N17.9 Acute kidney failure, unspecified; M62.82 Rhabdomyolysis; E87.20 Acidosis, unspecified; G89.29 Other chronic pain; M54.9 Dorsalgia, unspecified; E66.9 Obesity, unspecified; F17.210 Nicotine dependence, cigarettes, uncomplicated; F19.10 Other psychoactive substance abuse, uncomplicated; E87.6 Hypokalemia; E11.22 Type 2 diabetes mellitus with diabetic chronic kidney disease; E11.65 Type 2 diabetes mellitus with hyperglycemia; F15.10 Other stimulant abuse, uncomplicated; I12.9 Hypertensive chronic kidney disease with stage 1 through stage 4 chronic kidney disease, or unspecified chronic kidney disease; N18.30 Chronic kidney disease, stage 3 unspecified; D64.9 Anemia, unspecified; D72.829 Elevated white blood cell count, unspecified; Z79.899 Other long term (current) drug therapy; Z68.31 Body mass index [BMI] 31.0-31.9, adult
CPT/HCPCS: 36416; 70450; 71045; 74176; 80053; 80306; 80307; 81001; 82140; 82550; 83605; 83690; 83735; 84100; 84443; 84484; 84703; 85025; 87040; 87086; 93005; 94760; J0692; J1100; J1644; J2405; J2470; J3370; J3480; J7120